=== PATIENT | female | born 1960 | race Caucasian/White ===

== ENCOUNTER → 2024-04-17 08:59 | Outpatient (REF) | payer BC, SELFPAY | LOC: HWWDC 08:59 | PROVIDERS: ATTENDING PHYSICIAN Nurse Practitioner | DX: Z12.31 Encounter for screening mammogram for malignant neoplasm of breast (principal) | CPT/HCPCS: 77063; 77067 ==

== ENCOUNTER 2024-05-16 04:05 | Emergency (ER) | payer BC, SELFPAY ==
[2024-05-16 04:08] VITALS: BP 155/66
[2024-05-16 04:48] LABS: % Basophils 0.4 % (0-2); % Eosinophils 2.1 % (0-6); % Immature Granulocytes 0.8 % (0-0.5); % Lymphocytes 15.4 % (20.5-51.1); % Neutrophils 75.3 % (42.2-75.2); Absolute Eosinophils 0.2 10^3/uL (0-0.7); Absolute Immature Granulocytes 0.1 10^3/uL (0-0.05); Absolute Lymphocytes 1.4 10^3/uL (1.2-3.4); Absolute Monocytes 0.6 10^3/uL (0.1-0.6); Absolute Neutrophils 6.9 10^3/uL (1.4-6.5); Hematocrit 38.3 % (37.0-47.0); Hemoglobin 13.2 g/dL (12.0-16.0); Mean Corp Hgb Conc. 34.5 g/dL (33.0-37.0); Mean Corpuscular Hgb 30.1 pg (27.0-31.0); Mean Corpuscular Volume 87.2 fL (81.0-99.0); Mean Platelet Volume 9.8 fL (7.4-10.4); Nucleated Red Blood Cells % 0 %; Platelet Count 253 10^3/uL (130-400); Red Blood Cell Count 4.39 10^6/uL (4.20-5.40); Red Cell Dist. Width 12.4 % (11.5-14.5); White Blood Cell Count 9.2 10^3/uL (4.8-10.8)
[2024-05-16 05:07] LABS: Troponin I < 0.012 ng/ml
[2024-05-16 05:10] VITALS: BP 114/99
[2024-05-16 05:15] LABS: ALT (SGPT) 27 U/L (0-35); AST (SGOT) 25 U/L (14-36); Albumin 4.3 g/dl (3.5-5.0); Alkaline Phosphatase 101 U/L (38-126); Blood Urea Nitrogen 20 mg/dl (7-17); Calcium 9.2 mg/dl (8.4-10.2); Carbon Dioxide 25 mmol/L (22-30); Chloride 103 mmol/L (98-107); Glucose 151 mg/dl (70-99); Lipase 292 U/L (23-300); Potassium 4.2 mmol/L (3.5-5.1); Sodium 138 mmol/L (135-145); Total Bilirubin 0.4 mg/dl (0.2-1.3); Total Protein 7.2 g/dl (6.3-8.2); eGFR > 60.00
[2024-05-16 05:51] VITALS: BMI 37.1
[2024-05-16 06:00] VITALS: BP 115/62
--- NOTE | 2024-05-16 07:04 | ED.GENMED ---
History of Present Illness
<SHAKIR Fall - Last Filed: 05/16/24 07:54>
General
Chief Complaint: Abdominal Pain
Source: patient
Exam Limitations: none
Time Seen by Provider: 05/16/24 06:09
History of Present Illness
History of Present Illness:
This is a 63 y/o female with PMH of HTN, depression and IBS who present to the ED with cc of abdominal pain x 12 hours. The pain began after dinner at 6pm when she ate an uncrustable. At the time of onset the dull epigastric pain was 8/10 and
non-radiating. The pain has since improved to a 4/10 with radiation to the left back. She took Tylenol prior to coming to the ED and states it did not provide any relief. She admits to feeling like she can't get comfortable when trying to find a
position. She denies any abdominal pain episodes similar to this in the past. She admits to a mild headache that is described as generalized pressure over her head. The patient contributes the headache to her sinus congestion. She was diagnosed with
a sinus infection 2 weeks ago that was treated with a course of clarithromycin. She denies any fever, vomiting, fatigue, diarrhea, cough, chest pain, palpitations, dysuria and urinary frequency.
This is a 63 y/o female with PMH of HTN that is controlled on spironolactone. She has a history of depression that is controlled on lorazepam. She has a history of IBS that is controlled with dietary restrictions. She denies a known PMH of
gallstones. She denies any history of abdominal surgeries. Family history is not pertinent and grandmother has a history of T2DM. Admits to social alcohol use of beer and wine about 2x per month. Denies tobacco and illicit drug use.
<Lio Sanchez DO - Last Filed: 05/16/24 13:02>
General
Source: spouse
History of Present Illness
History of Present Illness:
This is a 63 y/o female with PMH of HTN, depression and IBS who present to the ED with cc of abdominal pain x 12 hours. The pain began after dinner at 6pm when she ate an uncrustable. At the time of onset the dull epigastric pain was 8/10 and
non-radiating. The pain has since improved to a 4/10 with radiation to the left back. She took Tylenol prior to coming to the ED and states it did not provide any relief. She admits to feeling like she can't get comfortable when trying to find a
position. She denies any abdominal pain episodes similar to this in the past. She admits to a mild headache that is described as generalized pressure over her head. The patient contributes the headache to her sinus congestion. She was diagnosed with
a sinus infection 2 weeks ago that was treated with a course of clarithromycin. She denies any fever, vomiting, fatigue, diarrhea, cough, chest pain, palpitations, dysuria and urinary frequency.
This is a 63 y/o female with PMH of HTN that is controlled on spironolactone. She has a history of depression that is controlled on lorazepam. She has a history of IBS that is controlled with dietary restrictions. She denies a known PMH of
gallstones. She denies any history of abdominal surgeries. Family history is not pertinent and grandmother has a history of T2DM. Admits to social alcohol use of beer and wine about 2x per month. Denies tobacco and illicit drug use.
[age]-year-old female with history as above. Does admit that she has had some abdominal bloating after eating over some time but did not really realize. Last night at work and had an across the ball as well as Devil dogs and some chips and
started have abdominal pain that seem to subside after a little bit of time. She then woke up in [place] with pain. She did eat again in the evening. No vomiting. No fevers. Denies alcohol use. Agree with above. states that she has
complained of some abdominal symptoms after eating over some time.
Past History
<SHAKIR Fall - Last Filed: 05/16/24 07:54>
Past History
ED Past Medical History: HTN, Other (IBS) and Other (Depression)
ED Past Surgical History: None
Social History
Tobacco: Non-smoker
Alcohol: Occasional
Drug: None
Personal:
Living: with family
Employment: Employed
Family History
Family History: Diabetes
Review of Systems
<Jocelin Rojas [facility] - Last Filed: 05/16/24 07:54>
Review of Systems
All Other Systems: ROS reviewed and negative except as documented in HPI and ROS
Constitutional: Reports no symptoms
EENT: Reports no symptoms
Respiratory: Reports no symptoms
Cardiac: Reports no symptoms
ABD/GI: Reports abdominal pain
: Reports no symptoms
Musculoskeletal: Reports no symptoms
Skin: Reports no symptoms
Neurological: Reports headache
Endocrine: Reports no symptoms
Hematologic/Lymphatic: Reports no symptoms
Psychiatric: Reports no symptoms
Phy Exam
<Jocelin Rojas [facility] - Last Filed: 05/16/24 07:54>
General Physical Exam
General Presentation: well appearing and no apparent distress
General age: appears stated age
General Skin: warm
General Mental: alert
General Hydration: appears well hydrated
Cardiovascular Exam
Cardiovascular Exam: regular rate/rhythm, no edema, no gallop, no JVD, no murmur and normal peripheral pulses
Pulmonary Exam
Pulmonary Exam: lungs clear, no respiratory distress, no rales, no crackles, no rhonchi, no wheezing and no cough
Cough: no cough
Gastrointestinal Exam
Gastrointestinal Exam: normal bowel sounds, non tender, soft, no pulsatile mass, non distended, no cva tenderness, no bruit and no masses
Auscultation of Abdomen: normal
Skin Exam
Skin Exam: normal color, no rash and no petechia
<Lio Sanchez DO - Last Filed: 05/16/24 13:02>
Physical Exam
Physical Exam:
CONSTITUTIONAL Patient alert and oriented to person, place and time. Well-appearing. Vital signs reviewed.
HEAD atraumatic, normocephalic.
EYES eyelids normal to inspection, Extraocular muscles intact, Conjunctiva normal, Sclera normal.
NECK normal range of motion, Trachea midline, no jugular venous distention.
RESPIRATORY CHEST No respiratory distress noted, Chest expansion equal
ABDOMEN negative Arteaga's, no true tenderness on my exam, Bowel sounds normal. No distention.
BACK normal inspection, no obvious deformities
UPPER EXTREMITY range of motion normal, Motor strength normal, no cyanosis, no edema.
LOWER EXTREMITY range of motion normal, Motor strength normal, no cyanosis, no edema.
NEURO Speech normal, No focal motor deficits, Mark coma scale 15, Memory normal, Cranial Nerves intact to screening exam.
SKIN skin warm, dry, and normal in color.
Course
<SHAKIR Fall - Last Filed: 05/16/24 07:54>
Orders/Labs/Results
Orders:
Orders
05/16/24 04:07
Electrocardiogram (*1) Urgent
Reason for Study: Chest Pain
05/16/24 04:08
EKG- Treatment ONCE
05/16/24 04:14
IV Insert/Care/Rem.- Treatment PRN
05/16/24 04:34
Complete Blood Count/With Diff Urgent
Comprehensive Metabolic Panel Urgent
Lipase Urgent
05/16/24 04:36
Troponin I Urgent
05/16/24 06:48
CT Abd/Pel (IV only)-DH only Urgent
Comment:
Reason For Exam: mid/epigastic abd pain radiating to back
05/16/24 07:57
Ketorolac [Toradol] 15 mg IV NOW STA
Abnormal Lab Results
05/16/24
04:34
Abs Immat Gran (auto) 0.1 H 10^3/uL
(0-0.05)
Absolute Neuts (auto) 6.9 H 10^3/uL
(1.4-6.5)
Immature Gran % 0.8 H %
(0-0.5)
Neutrophils % 75.3 H %
(42.2-75.2)
Lymphocytes % 15.4 L %
(20.5-51.1)
BUN 20 H mg/dl
(7-17)
Glucose 151 H mg/dl
(70-99)
05/16/24 04:34
05/16/24 04:34
Vital Signs
Initial and Last Documented VS:
Initial Vital Signs
Temp Pulse Resp BP Pulse Ox
97.2 F 70 18 155/66 96
05/16/24 04:08 05/16/24 04:08 05/16/24 04:08 05/16/24 04:08 05/16/24 04:08
Last Documented Vital Signs
Temp Pulse Resp BP Pulse Ox
97.2 F 76 16 122/76 98
05/16/24 04:08 05/16/24 09:03 05/16/24 09:03 05/16/24 09:03 05/16/24 09:03
<Lio Sanchez, DO - Last Filed: 05/16/24 13:02>
Orders/Labs/Results
Orders:
Orders
05/16/24 04:07
Electrocardiogram (*1) Urgent
Reason for Study: Chest Pain
05/16/24 04:08
EKG- Treatment ONCE
05/16/24 04:14
IV Insert/Care/Rem.- Treatment PRN
05/16/24 04:34
Complete Blood Count/With Diff Urgent
Comprehensive Metabolic Panel Urgent
Lipase Urgent
05/16/24 04:36
Troponin I Urgent
05/16/24 06:48
CT Abd/Pel (IV only)-DH only Urgent
Comment:
Reason For Exam: mid/epigastic abd pain radiating to back
05/16/24 07:57
Ketorolac [Toradol] 15 mg IV NOW STA
Abnormal Lab Results
05/16/24
04:34
Abs Immat Gran (auto) 0.1 H 10^3/uL
(0-0.05)
Absolute Neuts (auto) 6.9 H 10^3/uL
(1.4-6.5)
Immature Gran % 0.8 H %
(0-0.5)
Neutrophils % 75.3 H %
(42.2-75.2)
Lymphocytes % 15.4 L %
(20.5-51.1)
BUN 20 H mg/dl
(7-17)
Glucose 151 H mg/dl
(70-99)
05/16/24 04:34
05/16/24 04:34
Vital Signs
Initial and Last Documented VS:
Initial Vital Signs
Temp Pulse Resp BP Pulse Ox
97.2 F 70 18 155/66 96
05/16/24 04:08 05/16/24 04:08 05/16/24 04:08 05/16/24 04:08 05/16/24 04:08
Last Documented Vital Signs
Temp Pulse Resp BP Pulse Ox
97.2 F 76 16 122/76 98
05/16/24 04:08 05/16/24 09:03 05/16/24 09:03 05/16/24 09:03 05/16/24 09:03
<Lio Sanchez DO - Last Filed: 05/16/24 13:02>
MDM/Problems Addressed
Differential Diagnosis Includes:
Pancreatitis, duodenitis, gastritis, AAA, peptic ulcer disease, perforated viscus, cholelithiasis, cholecystitis, metabolic derangement
MDM/Problems Addressed:
Cholelithiasis
<Lio Sanchez DO - Last Filed: 05/16/24 13:02>
*Radiology
Radiology exam reviewed: preliminary read by ED provider (No free air, gallstones noted in the gallbladder)
*Pulse Oximetry
Patient hypoxic: no
*EKG
Interpreted by ED Provider?: Yes
Interpretation: abnormal
Rate: bradycardiac
Rhythm: sinus
Toxey: normal axis
Interval: normal interval
Ischemia: no ischemia
*Slat Twister Interpretation
Rate: normal
Interpretation: normal
Rhythm: sinus
*Critical Care Note
Total Time (30-74mins, 75-104mins- exclusive of procedures): Not Applicable
Data Reviewed
Source: patient and significant other
Further Testing Considered But Not Given:
Consider ultrasound with CT reasonable to conclude cholelithiasis as etiology
<DO Priyank Pena Last Filed: 05/16/24 13:02>
Patient Management
Escalation/DeEscalation of care consider admission/obs:
No evidence of cholecystitis. White count normal. Pain much improved. Will refer to outpatient follow-up with surgery. Recommend nonfat diet.
ED Attending Note
<SHAKIR Fall - Last Filed: 05/16/24 07:54>
-
Portions of this chart may have been created with voice recognition software.� Occasional wrong word or��sound alike� substitutions may have occurred due to the inherent limitations of voice recognition software.
<DO Priyank Pena Last Filed: 05/16/24 13:02>
ED Attending Note
Patient seen and examined by attending physician: Yes
Discharge Plan
Departure
Patient Disposition: Home (Routine Discharge)
Date of Disposition: 05/16/24
Time of Disposition: 08:13
Patient with high blood pressure during this ER visit?: No
Discharge Problem:
Cholelithiasis
Instructions: Gallstones (DC), Abdominal Pain
Prescriptions:
No Action
diltiazem HCl 420 MG capsule,extended release 24 hr
420 mg PO DAILY
venlafaxine 150 MG capsule,extended release 24hr
150 mg PO DAILY
cholecalciferol (vitamin D3) [Vitamin D3] 2,000 UNIT capsule
2,000 unit PO DAILY
Fibercon:
1 cap PO DAILY
trazodone 50 MG tablet
1 - 2 tab PO PRN PRN (Reason: depression)
spironolactone 25 MG tablet
50 mg PO DAILY
irbesartan-hydrochlorothiazide [Avalide] 1 EACH tablet
1 tab PO DAILY
Patient Comments:
300/12.5
hydrocodone-acetaminophen 1 TABLET tablet
1 - 2 tab PO Q6HPRN PRN (Reason: pain) Qty: 30 0RF
Rx Instructions:
Take 1-2 tablets four times a day, every 6 hours for pain
lorazepam 1 MG tablet
1 mg PO TIDPRN PRN (Reason: pain/spasms) Qty: 40 0RF
penicillin V potassium 500 MG tablet
500 mg PO Q6 Qty: 39 0RF
Referrals:
Avelino Milligan CRNP [Family Provider] -
Randolph Lundberg MD [Active] -
Activity Restrictions/Additional Instructions:
Return immediately for worsening or persistent abdominal pain, vomiting, fevers or any other concerns. Please see surgery in follow-up in the next 1 to 2 weeks. Please stick to a nonfat diet and drink plenty of fluids.
Interventions
Interventions:
*Risk Screen - Suicide Last Done: 05/16/24 04:17
*General Assessment Last Done: 05/16/24 04:20
*Neglect/Abuse Screening Last Done: 05/16/24 04:17
ED- Fall Risk Assessment Last Done: 05/16/24 06:02
*ED COVID-19 Vaccine History Last Done: 05/16/24 04:17
*Nursing Disposition Last Done: 05/16/24 09:04
QX-Muqjek-Yygptlotgt Assessment Last Done: 05/16/24 07:09
Discharge Date and Time
Discharge Date/Time: 05/16/24 09:05
Print Language: BENINESE
[2024-05-16] MEDS: TORADOL 15 MG IV (08:05)
[2024-05-16 09:03] VITALS: BP 122/76
== END 2024-05-16 09:05 | disposition home or self-care (01) ==
LOC: EMR 04:05
PROVIDERS: Student in an Organized Health Care Education/Training Program; EMERGENCY PHYSICIAN Emergency Medicine
DX: K80.20 Calculus of gallbladder without cholecystitis without obstruction (principal); I10 Essential (primary) hypertension; K58.9 Irritable bowel syndrome, unspecified; F32.A Depression, unspecified
CPT/HCPCS: 99285; 96374; 74177; 80053; 83690; 84484; 85025; 93005; Q9967

== ENCOUNTER 2024-05-26 02:48 | Inpatient (IN) | payer BC, SELFPAY ==
[2024-05-25 21:25] VITALS: BMI 39.2
[2024-05-25 21:28] VITALS: BP 161/88
[2024-05-25 21:47] LABS: % Basophils 0.6 % (0-2); % Eosinophils 1.9 % (0-6); % Immature Granulocytes 0.4 % (0-0.5); % Lymphocytes 24.4 % (20.5-51.1); % Monocytes 8.3 % (1.7-9.3); % Neutrophils 64.4 % (42.2-75.2); Absolute Basophils 0.1 10^3/uL (0-0.2); Absolute Eosinophils 0.2 10^3/uL (0-0.7); Absolute Lymphocytes 2.1 10^3/uL (1.2-3.4); Absolute Monocytes 0.7 10^3/uL (0.1-0.6); Absolute Neutrophils 5.5 10^3/uL (1.4-6.5); Hemoglobin 13.5 g/dL (12.0-16.0); Mean Corp Hgb Conc. 34.6 g/dL (33.0-37.0); Mean Corpuscular Hgb 30.1 pg (27.0-31.0); Mean Corpuscular Volume 86.9 fL (81.0-99.0); Mean Platelet Volume 9.4 fL (7.4-10.4); Nucleated Red Blood Cells % 0 %; Platelet Count 312 10^3/uL (130-400); Red Blood Cell Count 4.49 10^6/uL (4.20-5.40); Red Cell Dist. Width 12.4 % (11.5-14.5); White Blood Cell Count 8.6 10^3/uL (4.8-10.8)
[2024-05-25 22:06] LABS: ALT (SGPT) 18 U/L (0-35); AST (SGOT) 20 U/L (14-36); Albumin 4.4 g/dl (3.5-5.0); Alkaline Phosphatase 90 U/L (38-126); Blood Urea Nitrogen 19 mg/dl (7-17); Calcium 9.5 mg/dl (8.4-10.2); Carbon Dioxide 32 mmol/L (22-30); Chloride 98 mmol/L (98-107); Glucose 122 mg/dl (70-99); Lipase 435 U/L (23-300); Potassium 4.1 mmol/L (3.5-5.1); Sodium 138 mmol/L (135-145); Total Bilirubin 0.4 mg/dl (0.2-1.3); Total Protein 7.3 g/dl (6.3-8.2); eGFR > 60.00
[2024-05-25 22:49] VITALS: BP 146/76
--- NOTE | 2024-05-25 22:54 | ED.GENMED ---
History of Present Illness
General
Chief Complaint: Abdominal Pain
Source: patient
Time Seen by Provider: 05/25/24 22:44
History of Present Illness
History of Present Illness:
This patient is a 64-year-old female presents emergency department complaints of a 'dull pain' in the epigastric area radiating to the right and left upper quadrant that began at approximately noon today shortly after eating lunch. For lunch she
had soup and a bagel with jelly. Then at around 6 PM she ate a salad for dinner and shortly after noted that the same pain got much worse, especially in the epigastric area and sometimes rating around to the back but not through to the back. Pain
was not sudden in onset and not ripping or tearing quality. It feels very similar to when she had an episode of pain related to cholelithiasis. She denies associated fever, chills, chest pain, dyspnea, nausea, vomiting, or other complaints.
Past History
Past History
ED Past Medical History: HTN, Other (IBS) and Other (Depression)
ED Past Surgical History: None
Social History
Tobacco: Non-smoker
Alcohol: Occasional
Drug: None
Personal:
Living: with family
Employment: Employed
Family History
Family History: Diabetes
Phy Exam
Physical Exam
Physical Exam:
GENERAL: Alert , in no apparent distress
EYE: pupils equal and reactive
NECK: Supple, no significant adenopathy.
ENT: o/p clr, mmm.
CARDIAC: Regular rate and rhythm .
LUNGS: Clear breath sounds bilaterally, no acute respiratory distress, no wheezes/rales/rhonchi
ABDOMEN: Soft, epigastric, right upper quadrant greater than left upper quadrant tenderness, no r/g, no cvat
NEUROLOGICAL: Alert and oriented, no focal neuro deficits
SKIN: Warm and dry, skin intact.
MUSCULOSKELETAL: No edema, well perfused.
PSYCH: Normal and appropriate interaction.
Course
Orders/Labs/Results
Orders:
Orders
05/25/24 21:35
Complete Blood Count/With Diff Urgent
Comprehensive Metabolic Panel Urgent
Lipase Urgent
05/25/24 22:52
US Abdomen Complete/Upper Urgent
Comment:
Reason For Exam: hx gallstones, now pain
05/25/24 22:53
Morphine Sulfate 4 mg IV NOW STA
05/25/24 23:59
Morphine Sulfate 4 mg .ROUTE .STK-MED ONE
05/26/24 00:01
Morphine Sulfate 4 mg IV NOW STA
05/26/24 01:39
HYDROmorphone [Dilaudid] 1 mg .ROUTE .STK-MED ONE
05/26/24 01:40
HYDROmorphone [Dilaudid] 1 mg IV NOW STA
05/26/24 01:46
Piperacillin/Tazo 3.375 Gram [Zosyn] 3.375 gram in 50 ml IV NOW
05/26/24 02:10
Admit/Transfer Patient As Directed
Co-Sign Provider:
Level of Care: Inpatient admission
Assign to:: Medical/Surgical
Physician / Group: hospitalist
Diagnosis: gallstone pancreatitis, choledocholithiasis
Reason for Hospitalization: acute pancreatitis
Expected length of stay greater than two midnights?: Yes
ELOS- Estimated Length of Stay in days: 2
I certify the patient meets the requirements for IP care: Yes
PRN Pain Medication Management As Directed
May give lesser potent ordered pain med per pt: Yes
preference::
Protocol:: Medication orders for pain may be administered in a
manner that supports deferring to patient preference
when the pt is:
- Requesting an ordered lesser potent pain medication.
Least to most potent pain medications are defined
as: acetaminophen < NSAID < tramadol < opioids
(morphine, oxycodone, hydromorphone).
- Requesting a lesser dose of the same medication IF
ORDERED.
- Requesting a less intrusive route of administration
if both routes are prescribed by the provider (PO <
IV).
05/26/24 02:11
Code Status As Directed
Resuscitation Status: Full Code
05/26/24 03:00
Flush (0.9% Sodium Chloride) [Flush (Nss)] See Dose Instructions IV PER PROTOCOL
05/26/24 04:28
Acetaminophen [Tylenol] 650 mg PO Q4HPRN PRN
Alprazolam [Xanax] 0.25 mg PO BIDPRN PRN
Dextrose 5%/0.45%Sodchl 1000ML [D5/0.45%NaCl] 1,000 ml IV 80 mls/hr
HYDROmorphone [Dilaudid] 1 mg IV Q3HPRN PRN
Ondansetron Injectable [Zofran] 4 mg IV Q6HPRN PRN
05/26/24 04:28
Consult Notification Routine
Specialty to Notify: Gastroenterology
Date consulting provider notified: 05/26/24
Time consulting provider notified: 07:49
Notified:: Provider
GASTROINTESTINAL CONSULT Routine
Consulting Provider: Isaías Dailey
Was physician already notified: No
Reason for consult: choledocholithiasis, cholelithiasis with acute pancreatitis, ?cholecystitis
SURGICAL CONSULT Routine
Consulting Provider: Randolph Lundberg
Was physician already notified: Yes
Reason for consult: cholelithiasis w/ recurrent giuliana colic and acute pancreatitis
Activity As Directed
Activity Level: With Assistance
Vital Signs As Directed
Frequency: Per unit guidelines
DX Deep Vein Thrombosis Video Routine
05/26/24 Breakfast
NPO
Allow oral meds: Yes
Allow clear liquids: Sips of Clears
05/26/24 06:06
Basic Metabolic Panel IN AM
Complete Blood Count/No Diff IN AM
05/26/24 08:00
CefTRIAXone [Rocephin] 1,000 mg IV Q24H
Irbesartan [Avapro] 300 mg PO DAILY
MetroNIDAZOLE 500 MG/100 ML [Flagyl 500 mg] 100 ml IV Q8H
Venlafaxine Extended Release [Effexor Xr] 225 mg PO DAILY
05/26/24 18:00
Enoxaparin Sodium [Lovenox] 40 mg SC QPM
Abnormal Lab Results
05/25/24
21:35
Absolute Monos (auto) 0.7 H 10^3/uL
(0.1-0.6)
Carbon Dioxide 32 H mmol/L
(22-30)
BUN 19 H mg/dl
(7-17)
Glucose 122 H mg/dl
(70-99)
Lipase 435 H U/L
(23-300)
05/25/24 21:35
05/25/24 21:35
Vital Signs
Initial and Last Documented VS:
Initial Vital Signs
Temp Pulse Resp BP Pulse Ox
98.3 F 60 18 161/88 97
05/25/24 21:28 05/25/24 21:28 05/25/24 21:28 05/25/24 21:28 05/25/24 21:28
Last Documented Vital Signs
Temp Pulse Resp BP Pulse Ox
97.9 F 86 16 124/71 93
05/27/24 07:10 05/27/24 07:10 05/27/24 07:10 05/27/24 07:10 05/27/24 07:10
*Critical Care Note
Total Time (30-74mins, 75-104mins- exclusive of procedures): Not Applicable
Update Note
Update Note:
Patient presents to the Emergency Department with __abdominal pain
Number and Complexity of Problems Addressed at the Encounter
� Chronic conditions affecting care:
� Acute Exacerbation and/or Progression of Chronic Illness:
� Differential Diagnosis includes: But not limited to pancreatitis, cholelithiasis, cholecystitis, gastritis, etc. etc.
Amount and/or Complexity of Data to be Reviewed and Analyzed
� I performed an independent evaluation of and my interpretation is:
EKG:
CT:
Xrays:
Laboratory Studies:Normal transaminase and bilirubin, slightly elevated lipase
Other:Ultrasound verbal report Caitlyn lithiasis noted, patient has gallbladder distention with wall thickening but no pericholecystic fluid and sonographic Arteaga's is negative, questionable early cholecystitis. There is also
stones noted near the neck of the gallbladder, 1 of which appears to be immobile. CBD dilated 8 mm
� Review of other/old records reveals:
� Clinical information was obtained by an independent historian: who is bedside
� Prescriptions/Medications Considered but not given:
� Further testing considered but not performed:
Risk of Complications and/or Morbidity or Mortality of Patient Management
� Social determinants of health affecting care:
� Discussion with other providers (PCP, Hospitalists, Consultants, etc):
� Escalation of care including admission/observation vs risk of discharge considered:1:44 AM pain is better but still present, will remedicate. Patient does not have vomiting, fever, chest pain, shortness of breath, etc. Given
continued pain in the context of cholelithiasis and ultrasound findings, suspect early cholecystitis. Will likely need further testing to exclude gallstone pancreatitis given very slight lipase elevation and dilated ducts. Patient stable, aware of
plan. Hospitalist Allen texted.
ED Attending Note
-
Portions of this chart may have been created with voice recognition software.� Occasional wrong word or��sound alike� substitutions may have occurred due to the inherent limitations of voice recognition software.
Discharge Plan
Departure
Patient Disposition: Admit
Date of Disposition: 05/26/24
Time of Disposition: 01:45
Presentation/result/management discussed w/ accepting MD/DO: Hospitalist
Condition: Fair
Discharge Problem:
Cholecystitis
Interventions
Interventions:
*Risk Screen - Suicide Last Done: 05/26/24 04:33
*General Assessment Last Done: 05/25/24 21:28
*Neglect/Abuse Screening Last Done: 05/25/24 21:28
ED- Fall Risk Assessment Last Done: 05/26/24 04:32
*ED COVID-19 Vaccine History Last Done: 05/25/24 23:42
*Nursing Disposition Last Done: 05/26/24 04:32
SD-Olzvvj-Ujgmhaypwe Assessment Last Done: 05/25/24 23:07
Discharge Date and Time
Discharge Date/Time: 05/26/24 04:33
[2024-05-25] MEDS: MORPHINE SULFATE 4 MG IV (23:03)
[2024-05-25 23:34] VITALS: BP 111/77
[2024-05-26] VITALS (16 sets, daily range): BP systolic 98–168; BP diastolic 43–88; BMI 36.5
[2024-05-26] MEDS: MORPHINE SULFATE 4 MG IV (00:02)
[2024-05-26] MEDS: DILAUDID 1 MG IV ×2 (01:41→05:51)
--- NOTE | 2024-05-26 01:49 | HPS.HSE ---
Family Physician
-
Family Physician: JE Reece
Chief Complaint
-
Abdominal pain
History of Present Illness
This is a 64-year-old female with past medical history significant for hypertension, hyperlipidemia, obesity, depression who presents to the emergency department with recurrent episode of abdominal pain.
Patient reports that she was in the emergency department 1 week ago with similar abdominal pain. At the time she was diagnosed with cholelithiasis and was sent home with follow-up with surgery. She is pending surgical procedure in June.
However she ashley today in usual state of health then at lunchtime developed severe abdominal pain in bilateral epigastric region immediately after lunch. She had some diaphoresis from the pain but denies any fevers or chills. She had nausea and no
vomiting. She attempted to ignore the episode and let it pass until dinnertime. At dinner she had an order episode of severe epigastric and right upper quadrant as well as left upper quadrant abdominal pain. Was more severe this time and
associated with dry heaves but no nelsy vomiting.
He has no prior episodes of gallstone disease prior to this year. She denies any medication changes.
In the Emergency Department she was afebrile, blood pressure was 120/65 with a pulse of 52. CBC was completely unremarkable. Electrolytes BUN and creatinine were in the normal range with a slight elevation in BUN to 19 and bicarb to 32. LFTs were
completely normal. Lipase was elevated at 435. A right upper quadrant ultrasound etc. she will common bile duct dilated at 8 mm with possible early cholecystitis.
Medical History
Past Medical History
Past Medical History: Reports HTN and Psychiatric (depression)
Past Surgical History: Reports Gynocological (Tubal ligation) and Orthopedic (Laminectomy/spinal fusion. )
Social History
Tobacco: Non-smoker
Alcohol: None
Drug: None
Personal:
Living: With Family
Employment: Employed
Family History
Family History: Not pertinent
Allergies / Home Medications
Allergies reflects when Allergies were last updated in [facility].
Home Medications with original date entered in [facility]
Allergy/Medication List:
Allergies
Allergy/AdvReac Type Severity Reaction Status Date / Time
sulfamethoxazole Allergy Hives Verified 05/16/24 04:08
[From Bactrim]
trimethoprim [From Bactrim] Allergy Hives Verified 05/16/24 04:08
Home Medications
FiberCon 625 MG take 1 po qd. Oral
venlafaxine 150 mg capsule,extended release 24 hr 150 mg PO DAILY 08/20/15
irbesartan 300 mg-hydrochlorothiazide 12.5 mg tablet (Avalide) 1 tab PO DAILY 02/14/18
Glycopyrrolate 2 MG 1 -3 tablets Orally Once a day Active
Xanax 0.25 MG 1 tablet Orally Twice a day for 15 days needs to see psych, no refills from me after this Apr, Active
Venlafaxine HCl ER 75 MG 1 capsule with food Orally Once a day for 90 days Insurance covers capsules. 150mg + 75mg for total 225mg daily May, Active
Review of Systems
-
Constitutional: Reports No Symptoms
EENT: Reports No Symptoms
Respiratory: Reports No Symptoms
Cardiac: Reports No Symptoms
Abdomen/GI: Reports Abdominal Pain and Nausea
: Reports No Symptoms
Musculoskeletal: Reports No Symptoms
Skin: Reports No Symptoms
Neurological: Reports No Symptoms
Endocrine: Reports No Symptoms
Hematologic/Lymphatic: Reports No Symptoms
Psych: Reports No Symptoms
Physical Exam
Vital Signs
Vital Signs
Temp Pulse Resp BP Pulse Ox
97.9 F 52 15 119/66 97
05/25/24 22:00 05/26/24 00:00 05/26/24 00:00 05/26/24 00:00 05/25/24 21:28
Physical Exam
General: Well Developed, Well Nourished, Comfortable and Conversant
HEENT: NormoCephalic, Anicteric, Moist mucous membranes and Atraumatic
Respiratory: Clear
Cardiac: S1/S2 and Bradycardia
Breast: Deferred by me
GI: Soft, Non Distended, Normal Bowel Sounds and Tender (No rebound and no guarding)
Rectal: Deferred by Provider
Genito-urinary: Deferred by me
Musculoskeletal: No Clubbing and No Cyanosis
Skin: Warm
Neuro: AO x 3 and Nonfocal/grossly intact
Hematologic/Lymphatic: No Lymphadenopathy
Psych: Calm
Laboratory Results
-
05/25/24 21:35
05/25/24 21:35
Laboratory Results
Total Bilirubin 0.4 mg/dl (0.2-1.3) 05/25/24 21:35
AST 20 U/L (14-36) 05/25/24 21:35
ALT 18 U/L (0-35) 05/25/24 21:35
Alkaline Phosphatase 90 U/L (38-126) 05/25/24 21:35
Lipase 435 U/L (23-300) H 05/25/24 21:35
Data Reviewed
-
Ultrasound: Report Reviewed by me
Lab Data: Labs Reviewed by me
Old Records: Reviewed
Impression/Plan
-
IMPRESSION:
Patient with recent diagnosis of cholelithiasis presents to the emergency department with recurrent episode of epigastric and right upper quadrant abdominal pain associate with nausea and found to have known cholelithiasis with possible
cholecystitis as well as pancreatitis. CBD is dilated to 8 mm. LFTs wnl. Lipase elevated. Picture c/w gallstone pancreatitis as patient does not drink etoh. No cholangitis. Cannot rule out cholecystitis.
PLAN:
1. Gallstone pancreatitis
- admit to med surg
- NPO for now
- trend lfts
- MRCP in am
- IV fluids, pain control and antiemetics
- GI consultation
2. Possible Cholecystitis - Mild RUQ TTP. Full U/S report pending. Recent use of biaxin but no other risk factors for resistant GNR.
- IV ceftriaxone/metronidazole for now
- monitor fever profile and serial examinations
- npo as above
- surgery consultation
3. HTN
- continue ARB with hold parameters, hold hydrochorothiazide
4. Depression
- continue venlafaxine 225 daily
DVT PPX - lovenox sq
Code status - full code
[2024-05-26] MEDS: ZOSYN 50 IV (01:59)
[2024-05-26] MEDS: D5/0.45%NACL 1000 IV ×2 (05:44→23:05)
[2024-05-26] MEDS: FLAGYL 500 MG 100 IV ×3 (08:00→23:06)
[2024-05-26] MEDS: AVAPRO 300 MG PO (08:02)
[2024-05-26] MEDS: EFFEXOR XR 225 MG PO (08:04)
[2024-05-26] MEDS: STERILE WATER FOR INJECTION 10 ML IV (08:04)
[2024-05-26] MEDS: ROCEPHIN 1000 MG IV (08:04)
[2024-05-26 08:17] LABS: Hemoglobin 12.7 g/dL (12.0-16.0); Mean Corp Hgb Conc. 34.3 g/dL (33.0-37.0); Mean Corpuscular Volume 87.5 fL (81.0-99.0); Mean Platelet Volume 10.1 fL (7.4-10.4); Platelet Count 281 10^3/uL (130-400); Red Blood Cell Count 4.23 10^6/uL (4.20-5.40); Red Cell Dist. Width 12.4 % (11.5-14.5); White Blood Cell Count 10.2 10^3/uL (4.8-10.8)
--- NOTE | 2024-05-26 08:17 | CON.GI ---
Consultation
-
Date/Time Consultation Requested: 05/26/24 7:49am
Date/Time Consultation Performed: 05/26/24 8:17am
Requesting Provider: Randell Kim
Performing Provider: Isaías Dailey
Reason for Consultation: abd pain, gallstones
Medical History
Chief Complaint / HPI
Chief Complaint: abd pain, gallstones
History of Present Illness:
Patient is a 64-year-old female who presents with abdominal pain. She initially had an attack of epigastric pain after eating on May 16 and went to the ER. CAT scan showed gallstones and she was told to make appointment with the surgeon. She
saw Dr. Escobedo on May 23. She scheduled an appointment for cholecystectomy on June 21. She now presents with severe abdominal pain yesterday.
Past Medical History
Past Medical History: HTN
Past Surgical History: None
Social History
Tobacco: Non-Smoker
Alcohol: Occasional
Family History
Family History: Reviewed & Not Pertinent
Allergies / Home Medications
Allergy/AdvReac Type Severity Reaction Status Date / Time
sulfamethoxazole Allergy Hives Verified 05/16/24 04:08
[From Bactrim]
trimethoprim [From Bactrim] Allergy Hives Verified 05/16/24 04:08
�Medication �Instructions �Recorded
Fibercon: 1 cap PO DAILY 08/20/15
cholecalciferol (vitamin D3) 50 2,000 unit PO DAILY 08/20/15
mcg (2,000 unit) capsule (Vitamin
D3)
diltiazem HCl 420 mg capsule,24 420 mg PO DAILY 08/20/15
hr,extended release
venlafaxine 150 mg 150 mg PO DAILY 08/20/15
capsule,extended release 24 hr
irbesartan 300 1 tab PO DAILY 02/14/18
mg-hydrochlorothiazide 12.5 mg
tablet (Avalide)
spironolactone 25 mg tablet 50 mg PO DAILY 02/14/18
trazodone 50 mg tablet 1 - 2 tab PO PRN PRN depression 02/14/18
hydrocodone 5 mg-acetaminophen 325 1 - 2 tab PO Q6HPRN PRN pain #30 03/07/18
mg tablet tabs
lorazepam 1 mg tablet 1 mg PO TIDPRN PRN pain/spasms #40 03/07/18
tabs
penicillin V potassium 500 mg 500 mg PO Q6 #39 tabs 02/09/20
tablet
Review of Systems
-
All other systems: A 12 pt ROS was Negative except as stated above in HPI
Vital Signs
Temp Pulse Resp BP Pulse Ox
98.4 F 69 16 130/69 92
05/26/24 06:59 05/26/24 06:59 05/26/24 06:59 05/26/24 08:02 05/26/24 06:59
Physical Exam
Exam
General: Well Developed and Well Nourished
HEENT: Normocephalic and Atraumatic
Respiratory: Non Labored Respirations
GI: Soft and Tender (epigastric moderate tenderness)
Results
WBC 8.6 10^3/uL (4.8-10.8) 05/25/24 21:35
Hgb 13.5 g/dL (12.0-16.0) 05/25/24 21:35
Hct 39.0 % (37.0-47.0) 05/25/24 21:35
MCV 86.9 fL (81.0-99.0) 05/25/24 21:35
Plt Count 312 10^3/uL (130-400) 05/25/24 21:35
Absolute Neuts (auto) 5.5 10^3/uL (1.4-6.5) 05/25/24 21:35
Sodium 138 mmol/L (135-145) 05/25/24 21:35
Potassium 4.1 mmol/L (3.5-5.1) 05/25/24 21:35
Chloride 98 mmol/L (98-107) 05/25/24 21:35
Carbon Dioxide 32 mmol/L (22-30) H 05/25/24 21:35
BUN 19 mg/dl (7-17) H 05/25/24 21:35
Creatinine 0.8 mg/dL (0.6-1.0) 05/25/24 21:35
Calcium 9.5 mg/dl (8.4-10.2) 05/25/24 21:35
Total Bilirubin 0.4 mg/dl (0.2-1.3) 05/25/24 21:35
AST 20 U/L (14-36) 05/25/24 21:35
ALT 18 U/L (0-35) 05/25/24 21:35
Alkaline Phosphatase 90 U/L (38-126) 05/25/24:35
Lipase 435 U/L (23-300) H 05/25/24 21:35
Diagnostic Image Results:
Prior GI Procedures:
EGD:
Colonoscopy:
Assessment / Plan
-
Summary: 64yo female presents with epigastric pain. Had similar episode 05/16, CT in ER showed gallstones. She made appt for cholecystectomy 06/[address] Escobedo. Now presents with recurrent severe pain. US preliminary report shows
cholelithiasis, GB distention with wall thickening, no pericholecystic fluid, questionable early cholecystitis. Stones near neck of GB, one appears immobile. LFTs normal. Lipase 435
Impression:
Epigastric post prandial abd pain
Gallstones
Mild elevated lipase
Recommendations:
NPO, IVF
Check MRI/MRCP to r/o CBD stone.
Surgery consult for probable calculous cholecystitis
-
-
Thank you for consultation and allowing me to participate in the patient's care. Please call the [facility] commissioner GI physician during the after hours with any questions or concerns.
[2024-05-26 08:34] LABS: Blood Urea Nitrogen 16 mg/dl (7-17); Calcium 8.8 mg/dl (8.4-10.2); Carbon Dioxide 27 mmol/L (22-30); Chloride 99 mmol/L (98-107); Estimated Creatinine Clearance 118 ml/min; Glucose 124 mg/dl (70-99); Potassium 3.9 mmol/L (3.5-5.1); Sodium 137 mmol/L (135-145); eGFR > 60.00
--- NOTE | 2024-05-26 09:24 | CON.GS ---
Medical History
-
Chief Complaint: Epigastric abdominal pain, gallstones
History of Present Illness:
Patient is a 64-year-old female with a known history of gallstones. She saw Dr. Sharma this past week secondary to symptomatic cholelithiasis and was scheduled for cholecystectomy in June.
Yesterday evening developed the acute onset of epigastric abdominal pain bandlike radiating to her back with nausea and anorexia but no vomiting. Similar to her prior episodes but worse in severity prompting emergency department evaluation.
Continues with epigastric discomfort although slightly improved. No yellowing of the skin or eyes. No dark tea colored urine. No acholic stools.
Past Medical History
Past Medical History: Other (Hypertension)
Past Surgical History: None (Denies any past abdominal surgical history)
Allergies / Home Medications
Allergy/AdvReac Type Severity Reaction Status Date / Time
sulfamethoxazole Allergy Hives Verified 05/16/24 04:08
[From Bactrim]
trimethoprim [From Bactrim] Allergy Hives Verified 05/16/24 04:08
�Medication �Instructions �Recorded �Confirmed �Type
Fibercon: 1 cap PO DAILY 08/20/15 03/07/18 History
cholecalciferol (vitamin D3) 50 2,000 unit PO DAILY 08/20/15 03/07/18 History
mcg (2,000 unit) capsule (Vitamin
D3)
diltiazem HCl 420 mg capsule,24 420 mg PO DAILY 08/20/15 03/07/18 History
hr,extended release
venlafaxine 150 mg 150 mg PO DAILY 08/20/15 03/07/18 History
capsule,extended release 24 hr
irbesartan 300 1 tab PO DAILY 02/14/18 03/07/18 History
mg-hydrochlorothiazide 12.5 mg
tablet (Avalide)
spironolactone 25 mg tablet 50 mg PO DAILY 02/14/18 03/07/18 History
trazodone 50 mg tablet 1 - 2 tab PO PRN PRN depression 02/14/18 03/07/18 History
hydrocodone 5 mg-acetaminophen 325 1 - 2 tab PO Q6HPRN PRN pain #30 03/07/18 Rx
mg tablet tabs
lorazepam 1 mg tablet 1 mg PO TIDPRN PRN pain/spasms #40 03/07/18 Rx
tabs
penicillin V potassium 500 mg 500 mg PO Q6 #39 tabs 02/09/20 Rx
tablet
Review of Systems
-
A 10 point review of systems was completed, and was negative except as per HPI.
Physical Exam
Vital Signs
Temp Pulse Resp BP Pulse Ox
98.4 F 69 16 130/69 92
05/26/24 06:59 05/26/24 06:59 05/26/24 06:59 05/26/24 08:02 05/26/24 06:59
05/25/24 05/26/24 05/27/24
06:59 06:59 06:59
Actual Weight 102.648 kg
Body Mass Index (BMI) 36.5
Lab Results
05/26/24 06:06
05/26/24 06:06
WBC 10.2 10^3/uL (4.8-10.8) 05/26/24 06:06
Hgb 12.7 g/dL (12.0-16.0) 05/26/24 06:06
Hct 37.0 % (37.0-47.0) 05/26/24 06:06
Plt Count 281 10^3/uL (130-400) 05/26/24 06:06
Abs Immat Gran (auto) 0.0 10^3/uL (0-0.05) 05/25/24 21:35
Neutrophils % 64.4 % (42.2-75.2) 05/25/24 21:35
Physical Exam
General: Well Developed, Well Nourished, No Apparent Distress and Comfortable
Respiratory: Non Labored Respirations
GI: Soft, Non Distended and Tender (Mild tenderness palpation epigastrium and right upper quadrant)
Skin: Warm
Neuro: AO x 3
Psych: Calm
Data Reviewed
-
CT Scan: Image Personally Visualized and interpreted, Report Reviewed by me and Discussed with Patient
Ultrasound: Image Personally Visualized and interpreted, Report Reviewed by me and Discussed with Patient
Assessment / Plan
-
Assessment: 64-year-old female with probable acute biliary colic, possible gallstone mediated pancreatitis with mild elevation of lipase but normal LFTs. Ultrasound and CT imaging confirming cholelithiasis.
Reviewed with patient indications for cholecystectomy. Patient in agreement to proceed with surgery. Laparoscopic cholecystectomy with intraoperative cholangiogram was reviewed in detail with the patient including the operative technique,
alternative treatment options, benefits and potential risks such as but not limited to bleeding, infectious and wound related complications, iatrogenic injury to surrounding viscera, bile leak, bile duct injury and postcholecystectomy fatty food
intolerances/bowel changes. Any of the patient's concerns or questions were fully addressed and informed consent was obtained.
Plan: Patient has been added onto the OR schedule today for lap katiuska with cholangiogram
N.p.o.
IV fluids
Supportive care awaiting availability of an operating room.
--- NOTE | 2024-05-26 10:13 | W.SUR.PREOP ---
Pre-Operative Surgical Note
-
I have examined this patient prior to the performance of the scheduled procedure.
The patient's condition is unchanged from the time of the current History and
Physical and the patient is able to undergo the scheduled procedure.
--- NOTE | 2024-05-26 10:29 | W.PN.UPDATE ---
Update Note
Progress Note Update
Patient seen and examined, agree with admitting hospitalist H&P.
Appreciate general surgery and GI input. Plan for lap katiuska with cholangiogram today.
Continue n.p.o., IV fluids, supportive care, pain meds.
--- NOTE | 2024-05-26 11:55 | W.IMMPOSTOP ---
Addendum entered and electronically signed by Randolph Lundberg MD 05/26/24 12:05:
#[id number]
Original Note:
Surgical Immed Post Op Note
-
Primary Surgeon: Randolph Lundberg
Assisting Surgeon: None
Pre-op Diagnosis: Acute calculus cholecystitis
Post-op Diagnosis: Acute calculus cholecystitis
Procedure Performed: Laparoscopic cholecystectomy with intraoperative cholangiogram
Anesthesia Type: GETA +0.25% Marcaine with epi
Specimen / Cultures: Gallbladder
Estimated Blood Loss: 12 mL
Complications: None immediate
Operative Findings: Tensely distended gallbladder with surrounding inflammatory changes and wall thickening. Cyst needle decompression to aid in exposure and grasping of the gallbladder. Main cystic artery and small posterior branch identified and
controlled with clips intraoperative cholangiogram performed confirming biliary anatomy and no evidence of choledocholithiasis or biliary abnormality. Cystic duct controlled with 3 clips proximally. Gallbladder removed off liver bed and extracted
at epigastric port site.
Plan: Low-fat diet postoperatively as tolerated
Routine postoperative supportive care
Continue antibiotics while in hospital but no need for further antibiotics on discharge.
Okay for discharge when tolerating p.o. intake, ambulating and pain controlled either later on this afternoon or tomorrow a.m
Updated patient's via phone call postoperatively.
[2024-05-26] MEDS: TYLENOL 650 MG PO (16:33)
--- NOTE | 2024-05-26 17:10 | PTCARENOTE ---
pt .she ate a light lunch, no pain with local, just urinated but apparently always has issues with bladder, she has crackles in LLB gave IS, she apparently has sleep apnea had worked up 3 yrs ago but never. pulse ox has been low here 88-91 RA 93
-3l. STUNT WOMAN in room 91% RA explaining should stay night for arteaga and O2 is too low, may just be anesthesia. placed on 2l.
[2024-05-26] MEDS: LOVENOX 40 MG SC (18:13)
[2024-05-27 03:00] VITALS: BP 123/78
[2024-05-27] MEDS: TYLENOL 650 MG PO ×2 (06:19→11:24)
[2024-05-27 06:39] LABS: % Basophils 0.1 % (0-2); % Immature Granulocytes 0.5 % (0-0.5); % Lymphocytes 4.4 % (20.5-51.1); Absolute Immature Granulocytes 0.1 10^3/uL (0-0.05); Absolute Lymphocytes 0.7 10^3/uL (1.2-3.4); Absolute Monocytes 0.9 10^3/uL (0.1-0.6); Absolute Neutrophils 13.2 10^3/uL (1.4-6.5); Mean Corp Hgb Conc. 34.4 g/dL (33.0-37.0); Mean Corpuscular Hgb 29.9 pg (27.0-31.0); Mean Platelet Volume 10.8 fL (7.4-10.4); Nucleated Red Blood Cells % 0 %; Platelet Count 229 10^3/uL (130-400); Red Blood Cell Count 3.68 10^6/uL (4.20-5.40); Red Cell Dist. Width 12.4 % (11.5-14.5); White Blood Cell Count 14.9 10^3/uL (4.8-10.8)
[2024-05-27 06:57] LABS: ALT (SGPT) 179 U/L (0-35); AST (SGOT) 92 U/L (14-36); Albumin 3.4 g/dl (3.5-5.0); Alkaline Phosphatase 101 U/L (38-126); Blood Urea Nitrogen 17 mg/dl (7-17); Calcium 8.2 mg/dl (8.4-10.2); Carbon Dioxide 24 mmol/L (22-30); Chloride 100 mmol/L (98-107); Estimated Creatinine Clearance 101 ml/min; Glucose 127 mg/dl (70-99); Magnesium 2.1 mg/dl (1.6-2.3); Potassium 3.7 mmol/L (3.5-5.1); Sodium 134 mmol/L (135-145); Total Bilirubin 0.6 mg/dl (0.2-1.3); eGFR > 60.00
[2024-05-27 07:10] VITALS: BP 124/71
--- NOTE | 2024-05-27 07:37 | W.PN.HOSP.TC ---
Today's Communication/Plan
-
Discharge today
Assessment / Plan
Assessment / Plan
#Acute calculus cholecystitis
Appreciate general surgery input, status post laparoscopic cholecystectomy with intraoperative cholangiogram on 05/26/2024. IOC neg
Currently on Rocephin and Flagyl
Doing well postoperatively, cleared by general surgery for discharge on Augmentin
Follow-up with general surgery in the office
#Mildly elevated lipase with possible gallstone pancreatitis
Appreciate GI input, can follow-up as needed
#Leukocytosis
Patient is afebrile
Likely reactive, patient already on antibiotics as above
#Mild acute blood loss anemia
From surgery, mild, Hgb 11
#Transient hypoxia
Due to anesthesia, poor inspiratory effort
Resolved, patient is satting 96% on room air at rest, 94% with ambulation
#Obstructive sleep apnea
Discussed with patient she needs to go get a sleep study and obtain a CPAP
#Obesity due to excess calories
Affects all aspects of care
#Anxiety
Continue home Xanax
Physical Exam
General: Obese, no acute distress
HEENT: Normocephalic, Atraumatic, EOMI, MMM
Respiratory: Clear to Auscultation bilaterally
Cardiac: Normal S1/S2, Regular Rate and Rhythm
GI: Soft, nondistended, mildly tender, incisions clean/dry/intact, Normal Bowel Sounds
Extremities: No Clubbing, Cyanosis, or Edema
Neuro: Nonfocal/Grossly Intact
Psych: Calm, Cooperative
Derm: No Visible lesions
Anticipated Discharge: Today
Subjective/Interval History
-
Date of Service: May 26, 2024
Patient reports her abdominal pain is tolerable with Tylenol. No fever, no vomiting. No chest pain, no shortness of breath.
Objective Data
-
Labs:
Laboratory Results
05/25/24 05/26/24
21:35 06:06
WBC 8.6 Pending
Hgb 13.5 Pending
Hct 39.0 Pending
Plt Count 312 Pending
Sodium 138 Pending
Potassium 4.1 Pending
Chloride 98 Pending
Carbon Dioxide 32 H Pending
BUN 19 H Pending
Creatinine 0.8 Pending
Glucose 122 H Pending
Calcium 9.5 Pending
Total Bilirubin 0.4
AST 20
ALT 18
Alkaline Phosphatase 90
Vital Signs:
Vital Signs
Temp Pulse Resp BP Pulse Ox
98.4 F 69 16 130/69 92
05/26/24 06:59 05/26/24 06:59 05/26/24 06:59 05/26/24 06:59 05/26/24 06:59
[2024-05-27] MEDS: FLAGYL 500 MG 100 IV (08:04)
[2024-05-27] MEDS: AVAPRO 300 MG PO (08:05)
[2024-05-27] MEDS: EFFEXOR XR 225 MG PO (08:05)
[2024-05-27] MEDS: D5/0.45%NACL IV (08:06)
--- NOTE | 2024-05-27 09:02 | W.PN.GS2 ---
Addendum entered and electronically signed by Randolph Lundberg MD 05/27/24 09:22:
Patient seen and examined with ORAL SURGERY PHYSICIAN.
Doing well postop.
Tolerating dietary advancement
AFVSS
ABD: Soft, nondistended, mild tenderness at incision sites. Incisions with glue dressings.
Leukocytosis postop reactive
Assessment/plan: DC home; provided prescription for total of 5-day course of postoperative antibiotics, outpatient surgical follow-up with myself in 2 to 3 weeks.
Original Note:
Today's Communication / Plan
-
Dispo planning
Assessment / Plan
-
64 yo female presenting with ACC now POD #1 lap katiuska with IOC demonstrating no stones in the cbd
Mild reactive leukocytosis
Mild acute anemia. Suspect drift in h/h likely secondary to hemodilution and expected operative losses
Bilirubin normal, mild transaminitis expected given recent instrumentation
AFVSS
--Continue LFD
--Wean off O2
--D/C IVF
--OK for d/c today from surgical standpoint. Would continue on ABX with PO Augmentin. Updated d/c instructions
Subjective Data
-
Date of Service: May 27, 2024
Patient seen and examined at bedside with Dr. Lundberg. Denies n/v. Tolerating diet. Pain well controlled.
Objective Data
-
Intake and Output
05/26/24 05/27/24 05/28/24
06:59 06:59 06:59
Intake Total 1919
Balance 1919
Intake:
Oral fluids 1480 / 1480
IV fluids (Total) 340 / 340
normosol 100 / 100
IV piggybacks 100 / 100
Other:
Number of approximated MODERATE 2
amounts of urine
Number of approximated LARGE 1
amounts of urine
How many times incontinent 2
MODERATE amount urine
Vital Signs
Temp Pulse Resp BP Pulse Ox
97.9 F 86 16 124/71 93
05/27/24 07:10 05/27/24 07:10 05/27/24 07:10 05/27/24 07:10 05/27/24 07:10
Lab Results
05/27/24 04:22
05/27/24 04:23
Calcium 8.2 mg/dl (8.4-10.2) L 05/27/24 04:23
Magnesium 2.1 mg/dl (1.6-2.3) 05/27/24 04:23
Total Bilirubin 0.6 mg/dl (0.2-1.3) 05/27/24 04:23
AST 92 U/L (14-36) H 05/27/24 04:23
ALT 179 U/L (0-35) H 05/27/24 04:23
Alkaline Phosphatase 101 U/L (38-126) 05/27/24 04:23
Total Protein 6.0 g/dl (6.3-8.2) L 05/27/24 04:23
Albumin 3.4 g/dl (3.5-5.0) L 05/27/24 04:23
Physical Exam
-
NAD
ABD soft, nd, mild incisional tenderness
Incisions well approximated with intact glue dressings
[2024-05-27] MEDS: ROCEPHIN 1000 MG IV (09:04)
--- NOTE | 2024-05-27 09:32 | W.PN.GI.CBS2 ---
Today's Communication / Plan
-
Doing well s/p lap katiuska
IOC negative
Follow up with GI prn
For d/c today
Assessment / Plan
-
Summary: 64yo female presents with epigastric pain. Had similar episode 05/16, CT in ER showed gallstones. She made appt for cholecystectomy 06/[address] Escobedo. Now presents with recurrent severe pain. US preliminary report shows
cholelithiasis, GB distention with wall thickening, no pericholecystic fluid, questionable early cholecystitis. Stones near neck of GB, one appears immobile. LFTs normal. Lipase 435
Impression:
Epigastric post prandial abd pain
Gallstones
Mild elevated lipase
Subjective
Subjective
Date of Service: May 27, 2024
Minimal abd pain. Eating breakfast. FOr d/c today
Objective
Data Reviewed
Laboratory Data:
Laboratory Results
05/27/24 04:22
05/27/24 04:23
Laboratory Results
Magnesium 2.1 mg/dl (1.6-2.3) 05/27/24 04:23
Total Bilirubin 0.6 mg/dl (0.2-1.3) 05/27/24 04:23
AST 92 U/L (14-36) H 05/27/24 04:23
ALT 179 U/L (0-35) H 05/27/24 04:23
Alkaline Phosphatase 101 U/L (38-126) 05/27/24 04:23
Lipase 435 U/L (23-300) H 05/25/24 21:35
Vital Signs and I&O:
Vital Signs
Temp Pulse Resp BP Pulse Ox
97.9 F 86 16 124/71 93
05/27/24 07:10 05/27/24 07:10 05/27/24 07:10 05/27/24 07:10 05/27/24 07:10
I&O
05/26/24 05/27/24 05/28/24
06:59 06:59 06:59
Intake Total 1919
Balance 1919
Physical Exam
Physical Exam
GI: Soft, Non Distended and Non Tender
--- NOTE | 2024-05-27 10:19 | W.DCSUMMARY ---
Discharge Summary
Discharge Data
Date of Admission: 05/26/24
Date of Discharge: 05/27/24
-
Pending Results: No
Hospital Course
Discharge diagnosis:
Acute calculus cholecystitis
Elevated lipase
Transient postoperative hypoxia
Mild acute blood loss anemia from surgery
Leukocytosis, likely reactive
Obstructive sleep apnea
Obesity due to excess calories
Consults: General Surgery, GI
Procedures:
Laparoscopic cholecystectomy with intraoperative cholangiogram.
Hospital course:
64-year-old female with a past medical history of obstructive sleep apnea and obesity was admitted for acute acalculous cholecystitis. She also had an elevated lipase of 435. She was treated with IV Rocephin and Flagyl. She was seen in
conjunction with GI and general surgery. She underwent laparoscopic cholecystectomy with IOC. IOC was negative. She was found to be mildly hypoxic post operatively. She was satting 89-91% on room air. Suspect this is secondary to anesthesia,
poor inspiratory effort, and underlying obstructive sleep apnea. She states she has known obstructive sleep apnea, and needs to obtain a CPAP.
By the following day, her hypoxia resolved. She is satting 96% on room air at rest, 94% on room air with ambulation.
She had a mild leukocytosis, but was afebrile. Suspect this is likely reactive.
She also had mild acute blood loss anemia. Her hemoglobin was 11.0 on the day of discharge.
Patient is medically stable and cleared by general surgery for discharge on Augmentin for 4 more days. She needs to follow-up with general surgery in the office in 2 weeks, as well as pulmonology in the office in 2-3 weeks to get a sleep study and
obtain a CPAP machine.
Disposition: Home self-care
Discharge planning: Required 39 minutes
Discharge Plan
-
Patient Disposition: Home (Routine Discharge)
Discharge Diagnosis/Procedures: Acute calculous cholecystitis. Laparoscopic cholecystectomy with intraoperative cholangiogram. Obstructive sleep apnea.
Condition: Good
Diet: As tolerated and Low Fat
Additional Diets: Smaller meals initially after surgery as abdominal bloating and distention are common for the first few days
Activity: No strenuous activity
Additional Activity: No lifting over 20 pounds for 3 to 4 weeks postoperatively
Driving Restrictions: No driving for 1 to 2 days or if using narcotics
Bathing Restrictions: OK to Shower
Wound Care: Glue at surgical sites typically peels off in 2 to 3 weeks
Activity Restrictions/Additional Instructions:
Please follow-up with pulmonology to get another sleep study and obtain your CPAP for your sleep apnea.
You may take [id number] Tylenol, 1 g up to 3 times a day as needed for your pain.
You may also take ibuprofen 800 mg up to 3 times a day as needed for your pain.
Follow-up with general surgery in the office as directed.
�Randolph Lundberg MD [facility] General Surgery
[facility]
[address] [place] [address], [address]
[place] [address]
[phone]
Post-Operative Instructions for Gallbladder Surgery
The incision sites are sealed with a surgical glue dressing.� It is safe to shower at any time after surgery when the glue is dry.� Let shower water run over the incisions and then pat dry.
Glue dressing typically peels off in 2-3 weeks.
Abdominal/incisional pain and discomfort, shoulder/scapular pain, bloating, and mild nausea, as well as bruising/stiffness and swelling at the incision sites are common after surgery.� If felt to be excessive, notify us.
Please start postoperative pain management using over the counter medications such as Tylenol and Ibuprofen, per instructions on the bottle, as long as there are no medical reasons why you cannot take these medications.
Ice the incisions sites for 20 minutes every hour or so to help with postoperative incisional pain and reduce postoperative surgical site swelling.� Take care NOT to get an ice burn on the skin surface.
A warm heating pad is often helpful to alleviate shoulder/scapular back pains after laparoscopic procedures.� This pain typically dissipates 24-72hrs post op.
Transition to a low fat diet as tolerated after surgery if not experiencing postoperative nausea or significant bloating/distention.
�
Some fatty food intolerance may occur shortly after surgery (cramps,bloating, nausea,diarrhea with fat intake).
Constipation is common following surgery and postoperative narcotic use.� May use a stool softener such as Colace (100 mg 2x day) to prevent constipation
If no BM 24hrs after surgery, recommend starting daily Miralax
If no BM in 24-48hrs after starting Miralax --> recommend then using a dose of magnesium citrate or milk of magnesia with a Senokot tablet to help alleviate post operative constipation as long as there is no nausea/vomiting and passing gas.
Resume all preoperative medications as prescribed, unless directed otherwise.
Do not drive or drink alcohol for 24 hrs after having anesthesia or while taking narcotic pain medications.
Resume regular daily light activities, such as walking, standing and going up/down stairs as tolerated within 24hrs of surgery.� Please refrain from lifting over 20 lbs or strenuous exercise until postoperative follow up visit &/or approximately
3-4 weeks.�
Call the office with a fever above 101� F, nausea with vomiting, severe abdominal pain, yellowing of skin or eyes, spreading redness and drainage from incision sites or with any concerns/questions.
If not arranged prior to surgery, please call the office to schedule postoperative surgical follow-up office visit with Dr. Lundberg.
Referrals:
Roxann Granger DO [Active] -
Randolph Lundberg MD [Active] - in two to three weeks
Prescriptions:
New
amoxicillin-pot clavulanate 875-125 mg tablet
1 tab PO Q12 Qty: 8 0RF
ibuprofen 800 mg tablet
800 mg PO TID PRN (Reason: Pain) 10 Days Qty: 30 0RF
Continued
venlafaxine 150 MG capsule,extended release 24hr
150 mg PO DAILY
Rx Instructions:
take with 75mg for total of 225mg
calcium polycarbophil [FiberCon] 625 mg Tablet
625 mg PO DAILY Qty: 0
cholecalciferol (vitamin D3) [Vitamin D3] 2,000 UNIT capsule
2,000 unit PO DAILY
venlafaxine 75 mg Capsule,Extended Release 24hr
75 mg PO DAILY
Rx Instructions:
take with 150mg for total of 225mg
alprazolam 0.25 mg Tablet
0.25 mg PO BIDPRN PRN (Reason: anxiety)
irbesartan-hydrochlorothiazide 300-12.5 mg Tablet
1 tab PO DAILY
glycopyrrolate 2 mg Tablet
2 mg PO HS
Discharge Orders:
Discharge Patient (As Directed); Ordered 05/27/24
Ordered By: Vipin Quarles
Discharge Date and Time
Discharge Date/Time: 05/27/24 11:32
Print Language: AZERI
[2024-05-27] MEDS: STERILE WATER FOR INJECTION 10 ML IV (11:05)
--- NOTE | 2024-05-27 11:09 | CM ---
Patient seen at bedside. Patient states she lives with her in a 2 story home with no DME and her PCP is HALINA Milligan and used the [facility] in [place]. Patient states she has no needs and anticipates discharge today. CM will continue to
follow for discharge planning needs.
Plan; home with no needs.
== END 2024-05-27 11:32 | disposition home or self-care (01) | DRG 417 ==
LOC: 2 SOUTH 02:48
PROVIDERS: Student in an Organized Health Care Education/Training Program; ADMITTING PHYSICIAN Internal Medicine; ATTENDING PHYSICIAN Family Medicine; CONSULT PHYSICIAN Specialist; CONSULT PHYSICIAN Surgery; EMERGENCY PHYSICIAN Emergency Medicine
PROC: 0FT44ZZ Resection of Gallbladder, Percutaneous Endoscopic Approach (ICD-10-PCS; 2024-05-26)
PROC: BF141ZZ Fluoroscopy of Gallbladder, Bile Ducts and Pancreatic Ducts using Low Osmolar Contrast (ICD-10-PCS; 2024-05-26)
DX: K80.66 Calculus of gallbladder and bile duct with acute and chronic cholecystitis without obstruction (principal); K85.10 Biliary acute pancreatitis without necrosis or infection; D62 Acute posthemorrhagic anemia; G47.33 Obstructive sleep apnea (adult) (pediatric); Z68.36 Body mass index [BMI] 36.0-36.9, adult; F41.9 Anxiety disorder, unspecified; E66.09 Other obesity due to excess calories; I10 Essential (primary) hypertension; K82.8 Other specified diseases of gallbladder
CPT/HCPCS: 88304; 74300; 76000; 76700; 80048; 80053; 83690; 83735; 85025; 85027; 96374; 96375; 96376; 99284; A4300

== ENCOUNTER → 2024-08-27 11:48 | Outpatient (REF) | payer BC, SELFPAY | LOC: DHSLP 11:48 | PROVIDERS: ATTENDING PHYSICIAN Internal Medicine | DX: G47.33 Obstructive sleep apnea (adult) (pediatric) (principal) | CPT/HCPCS: 95800 ==

== ENCOUNTER 2025-02-22 06:32 | Day surgery (SDC) | payer BC, SELFPAY | END 2025-02-22 09:38 | disposition home or self-care (01) | LOC: GI 06:32 | PROVIDERS: ATTENDING PHYSICIAN Student in an Organized Health Care Education/Training Program | DX: Z12.11 Encounter for screening for malignant neoplasm of colon (principal); D12.0 Benign neoplasm of cecum; D12.2 Benign neoplasm of ascending colon; K57.30 Diverticulosis of large intestine without perforation or abscess without bleeding; Z86.0101 Personal history of adenomatous and serrated colon polyps | CPT/HCPCS: 45390; 88305 ==